=== PATIENT | female | born 1990 | race Caucasian/White ===

== ENCOUNTER 2023-04-21 08:17 | Emergency (ER) | payer MEDICAID ==
[~2023-04-21] VITALS: Ht 167.6 cm; Wt 72.6 kg
[2023-04-21 08:17] VITALS: BP_SYST 138; PULSE 89; RESP 17; TEMP 97.4; O2SAT 100
[2023-04-21] MEDS ORDERED: DIPHTH,PERTUSS(ACELL),TET VAC 0.5 ML VIAL (Tdap) I.M. ONE (08:30)
[2023-04-21] MEDS ORDERED: LIDOCAINE 1% 10 MG/ML, 20 ML MDV INJ ONE (08:30)
[2023-04-21] MEDS ORDERED: BACITRACIN 1 GM OINT TP ONE (08:30)
[2023-04-21 09:05] VITALS: BP_SYST 138; PULSE 89; RESP 17; TEMP 97.4; O2SAT 100
== END 2023-04-21 09:06 | disposition home or self-care (01) ==
LOC: SED 08:17
DX: S61.300A Unspecified open wound of right index finger with damage to nail, initial encounter (principal); W22.8XXA Striking against or struck by other objects, initial encounter; Y93.89 Activity, other specified; Y92.89 Other specified places as the place of occurrence of the external cause; Y99.8 Other external cause status
CPT/HCPCS: 90715; 99284